=== PATIENT | female | born 1970 | race American Indian/Alaskan Native ===

== ENCOUNTER 2023-11-02 08:12 | Outpatient (AMB) | payer MEDICAID, SELFPAY ==
--- NOTE | 2023-11-02 08:17 | MHC.OFFVIS ---
Intake Vital Signs 11/02/23 08:20 Height 5 ft 7 in Weight 137 lb 12.623 oz BMI 21.6 BP 116/64 Blood Pressure Location Rt brachial Position Sitting Pulse 84 Pulse Source Pulse Oximeter Pulse Oximetry (%) 98 Oxygen Delivery Method Room Air Intake Visit Reasons: BL foot pain/ok per MD no need ref Intake Note: New pt presents today for R foot pain Spends a lot of time on her feet MRI last year bursitis Hostel Parent Required: No Accompanied by: Self / Same As Patient Allergies NSAIDS (Non-Steroidal Anti-Inflamma Adverse Reaction (Mild, Verified 11/02/23 08:25) Gastrointestinal Upset Medication List - Last Reconciled 11/02/23 by Raul Cai MD meloxicam 7.5 mg PO DAILY omeprazole 20 mg PO DAILY HPI HPI Comments History of Present Illness Details This is a 53-year-old female who presents for evaluation of right foot pain. The condition started about 2016. After taking a urine trip for 3 weeks and doing plenty of walking and hiking. She had significant right foot pain that was much more severe with putting any pressure on it or walking. It improves with rest. But she had to rest for a few weeks. She stated that she was evaluated by a dairy nutrition specialist the [place] and was told that she might have Alas's neuroma, right foot MRI was done which did not show Alas's neuroma but showed intermetatarsal bursitis. Feet insoles was prescribed. But patient stated that for very hard and they made her pain worse. Patient stated that she does not generally rest adequately. She is always on her feet. She states that she gets intermittent pain in her right 3rd and 4th MCPs, usually with activity. Denies any swollen joints. Denies any family history of an autoimmune rheumatic disease. She denies any skin rash. Denies any fevers. No known family history of an autoimmune rheumatic disease was recently prescribed meloxicam 7.5 mg times 10 tablets by her PCP. Started taking it 2 days ago [facility] Medical History (Updated 11/02/23 @ 09:13 by Raul Cai MD) Foot pain Surgical History No history of previous surgery Family History Father Diabetes Mother Osteoarthritis Social History Alcohol intake: current Alcohol intake frequency: does not drink Patient Tobacco Use Status: Never used Tobacco Current occupational status: unemployed Female Reproductive History Menstrual Total pregnancies: 4 Number of Living Children: 3 Review of Systems Const Reports fatigue, Denies fever(s) and Reports weight loss (9 Ibs) Musc Reports arthralgias, Reports joint swelling, Reports limited range of motion and Reports stiffness Skin/Breast Denies rash Endo Reports fatigue Physical Exam Vital Signs: Last Vital Signs Pulse 84 11/02/23 08:20 BP 116/64 11/02/23 08:20 Pulse Ox 98 11/02/23 08:20 Oxygen Delivery Method Room Air 11/02/23 08:20 BMI result Body Mass Index 21.6 Const General: cooperative, healthy appearing and comfortable Nutritional Appearance: average body habitus Orientation/consciousness: patient oriented x3 Limitations: no limitations HEENT Head: Yes normocephalic and Yes atraumatic Mouth: moist mucous membranes Resp Effort & Inspection: normal respiratory effort and able to speak in complete sentences Auscultation: clear to auscultation bilaterally Cardio Rate: regular rate Rhythm: regular rhythm Skin General skin exam: no rashes or lesions noted Neuro General: patient oriented x3 Extrem Other: No swollen joints both hands, wrists Mildly tender right 3rd and 4th flexor tendons Normal nailfold capillaroscopy Normal range of motion of hands, wrists, elbows and shoulders without pain Normal range of motion of knees with out pain no swelling or tenderness of ankles Minimal swelling at the sole of her right foot Tenderness in between right 3rd and 4th MTPs and right 1st and 2nd MTPs. Negative MTP squeeze test bilaterally Results Reviewed Results Reviewed: Right foot MRI with and without contrast 11/2022 Findings: No bone marrow edema, fracture, osteonecrosis or focal lesion. Joints: Mild degenerative changes of the midfoot. No effusion or enhancing synovitis. No subchondral edema Soft tissues: Small amount of fluid within the 2nd intermetatarsal space. Nonspecific soft tissue edema on the plantar aspect of the 2nd and 3rd metatarsals. No soft tissue mass. Ligaments and tendons are intact. Impression small amount of fluid within the 2nd intermetatarsal space with mild surrounding soft tissue edema at the plantar aspect of the 2nd and 3rd distal metatarsals. Finding may be seen with 2nd intermetatarsal bursitis. No MR evidence of Alas's neuroma. No acute stress fracture Assessment & Plan Assessment & Plan (1) Foot pain: Code(s): M79.673 - Pain in unspecified foot Qualifiers: Laterality: right Qualified Code(s): M79.671 - Pain in right foot Plan: This is a 53-year-old female who presents for evaluation of right foot pain, dating back to 2017, usually worse with use, improves with rest.? No other swollen joints.? Previous labs showed borderline positive rheumatoid factor which is nonspecific. Right foot MRI last year showed intermetatarsal bursitis.? She was evaluated by dairy nutrition specialist and scribed insoles which were not comfortable.? Advised patient to return to Podiatry for re-evaluation.? I do not see any signs suggestive of an autoimmune rheumatic disease today.?? Discussed symptoms and signs that are suggestive of an autoimmune rheumatic disease.? Follow-up as needed Plan I spent 30 minutes reviewing patient's chart, evaluating patient, ordering diagnostic workup, counseling patient and documenting in the chart Coding Level of Care Code New Pt Level 3 (25865) Diagnoses Right foot pain M79.671 Laterality: right
[2023-11-02 08:20] VITALS: BP 116/64; PULSE 84; O2SAT 98; BMI 21.6
== END 2023-11-02 09:05 | disposition home or self-care (01) ==
PROVIDERS: PCP Internal Medicine Medical Oncology; Visit Provider Student in an Organized Health Care Education/Training Program
DX: M79.671 Pain in right foot (principal)
CPT/HCPCS: 99203

== ENCOUNTER → 2023-11-02 08:12 | Outpatient (BNVA) | payer MEDICAID, SELFPAY | PROVIDERS: PCP Internal Medicine Medical Oncology; Visit Provider Student in an Organized Health Care Education/Training Program | DX: M79.671 Pain in right foot (principal) | CPT/HCPCS: 99202 ==